=== PATIENT | male | born 1960 | race Caucasian/White ===

== ENCOUNTER → 2017-12-24 | Outpatient (CLI) | payer BC | END | disposition home or self-care (01) | LOC: KCIC 11:07 | DX: R06.02 Shortness of breath (principal); K21.0 Gastro-esophageal reflux disease with esophagitis | CPT/HCPCS: 71046 ==

== ENCOUNTER → 2018-06-24 | Outpatient (CLI) | payer BC ==
[2015-06-20 07:15] VITALS: BP 107/81
[~2018-06-24] MED LIST: AMOX1TAB11 PO; DOCU-109 PO; NAPR-677 PO; OXYC1TAB7 PO; PANT40TA77 PO
--- NOTE | 2018-06-24 10:21 | KCIC ---
Examination: CT of the abdomen pelvis with contrast HISTORY: History of periumbilical pain COMPARISON: None available TECHNIQUE: Axial CT images of the abdomen pelvis were performed without contrast. Coronal and sagittal reformats are performed. Exposure: One or more of the following individualized dose reduction techniques were utilized for this examination: 1. Automated exposure control 2. Adjustment of the mA and/or kV according to patient size 3. Use of iterative reconstruction technique FINDINGS: The bibasilar lungs are clear. No evidence of free air identified in the abdomen. The evaluation of the solid organs is limited lack of IV contrast. Evaluation of bowel is limited due to lack of oral contrast. Visualized noncontrasted liver, spleen, adrenals grossly appears unremarkable. The visualized pancreas grossly appears unremarkable. The stomach is mildly distended The small bowel is nondilated. Few distended small bowel loops identified in the abdomen Anterior abdominal wall ventral hernia identified at the level of the umbilicus containing multiple small bowel loops. Some of the small bowel loops demonstrate feces within. No evidence of proximal obstruction is identified. Feces and gas noted in the colon. Urinary bladder is mildly distended. The appendix is normal. Prominent appearing right renal pelvis without obstructive radiopaque calculus. No evidence of intrarenal collecting system calculi identified. Mild aortic atherosclerosis. Mild degenerative changes lumbar spine. IMPRESSION: 1. Moderate size anterior abdominal wall ventral hernia, at the level of the umbilicus identified , containing small bowel loops. 2. Prominent right renal pelvis without evidence of obstructing radiopaque calculus could be due to prominent extrarenal pelvis. Electronically signed by: Nigel Collier MD (06/24/2018 10:16 AM) [id number]
== END | disposition home or self-care (01) ==
LOC: KCIC CT 10:00
PROVIDERS: ATTEND Internal Medicine Gastroenterology
DX: K43.9 Ventral hernia without obstruction or gangrene (principal); N32.89 Other specified disorders of bladder; K31.89 Other diseases of stomach and duodenum
CPT/HCPCS: 74176

== ENCOUNTER → 2018-12-08 | Outpatient (CLI) | payer BC ==
[2015-06-20 07:15] VITALS: BP 107/81
--- NOTE | 2018-12-08 17:30 | KCIC ---
2 view study of the left calcaneus Clinical indications: Left heel pain for 2 months when bearing weight. FINDINGS: No acute fracture or dislocation or lytic process is seen. Boehler's angle is maintained. No plantar or posterior spur of the calcaneus is seen. IMPRESSION: No acute osseous abnormality. Electronically signed by: Sidney Rider MD (12/08/2018 5:27 PM) [id number]
== END | disposition home or self-care (01) ==
LOC: KCIC 12:25
PROVIDERS: ATTEND Nurse Practitioner Family
DX: M79.672 Pain in left foot (principal)
CPT/HCPCS: 73650